=== PATIENT | female | born 1945 | race Hispanic/Latino ===

== ENCOUNTER 2016-08-22 21:47 | Emergency (ER) | payer SELFPAY ==
[~2016-08-22] VITALS: Ht 152.4 cm; Wt 49.0 kg
[~2016-08-22 21:47] MED LIST: BACTRIM DS1 TAB PO; CIPRO XR500 MG PO; GABAPENTIN300 MG PO; PERCOCET 5/325M1 TAB PO; PHENERGAN25 MG/TAB PO; ULTRAM50 M1 PO
[2016-08-23 01:24] VITALS: BP 152/82
== END 2016-08-23 01:24 | DRG 125 ==
LOC: ED 21:47
DX: H40.9 Unspecified glaucoma (principal)

== ENCOUNTER 2016-11-21 20:12 | Emergency (ER) | payer SELFPAY ==
[~2016-11-21] VITALS: Ht 152.4 cm; Wt 47.0 kg
[2016-11-21 22:20] VITALS: BP 164/81
== END 2016-11-21 22:20 | disposition short-term general hospital (02) | DRG 125 ==
LOC: ED 20:12
DX: H40.9 Unspecified glaucoma (principal); H57.11 Ocular pain, right eye; R51 Headache

== ENCOUNTER 2017-04-14 15:18 | Emergency (ER) | payer SELFPAY ==
[~2017-04-14] VITALS: Ht 152.4 cm; Wt 54.0 kg
[2017-04-14] MEDS ORDERED: FLEXERIL PO (17:12)
[2017-04-14] MEDS ORDERED: NAPROSYN500 MG PO (17:12)
[2017-04-14 17:30] VITALS: BP 129/74
== END 2017-04-14 17:30 | disposition home or self-care (01) | DRG 563 ==
LOC: ED 15:18
DX: S43.402A Unspecified sprain of left shoulder joint, initial encounter (principal); M47.812 Spondylosis without myelopathy or radiculopathy, cervical region